=== PATIENT | female | born 1950 | race Caucasian/White ===

== ENCOUNTER → 2016-11-21 | Outpatient (CLI) | payer OTHER ==
[~2016-11-21] MED LIST: ASPI81TA28 PO; ATOR10TA88 PO; CALCTAB7 PO; MULTTAB58 PO; NTRGSL/4 SL; OMEG10007 PO
[2016-11-21 12:06] LABS: ALB/GLOB RATIO 1.1 (0.9-2); ALKALINE PHOSPHATASE 95 U/L (45-117); ALT/SGPT 32 U/L (12-78); AST/SGOT 17 U/L (15-37); BLOOD UREA NITROGEN 19 mg/dl (7-18); BUN/CREATININE RATIO 25.7 (10-20); CARBON DIOXIDE 27 mmol/L (21-32); CHLORIDE 106 mmol/L (98-107); CREATININE 0.75 mg/dl (0.60-1.20); GLUCOSE 95 mg/dl (70-99); POTASSIUM 3.8 mmol/L (3.5-5.1); SODIUM 142 mmol/L (136-145)
[2016-11-21 12:17] LABS: CHOLESTEROL 158 mg/dl (0-200); CHOLESTEROL/HDL RATIO 3.4; HDL CHOLESTEROL 46 mg/dl; LDL CHOLESTEROL CALCULATED 65 mg/dl; TRIGLYCERIDES 233 mg/dl (0-150); VERY LOW DENSITY LIPOPROT CALC 47 mg/dl
--- NOTE | 2016-12-18 12:45 | CODING QUERY MEDICAL NECESSITY ---
SUPPORTING DIAGNOSIS NEEDED A supporting diagnosis is required for the test/procedure performed on this patient in order for us to be reimbursed by the patient's insurance. Please provide a supporting diagnosis for the following test/procedure listed below next to the test name along with your signature. *If there is no additional diagnosis for this patient that would support the following test/procedure please document that below next to the test/procedure. Test(s)/Procedure(s) that require a supporting diagnosis: DOS 2/2 * Vitamin D DIAGNOSIS: * Lipids DIAGNOSIS: * TSH DIAGNOSIS: Provider Signature: Date: Thank you Estella Yancey Health Information Management Once completed, please kindly fax back to [phone] For questions please call [phone]
== END | disposition home or self-care (01) ==
LOC: C.LAB1850 10:33
PROVIDERS: ATTEND Internal Medicine
DX: Z00.00 Encounter for general adult medical examination without abnormal findings (principal); Z12.4 Encounter for screening for malignant neoplasm of cervix; Z78.0 Asymptomatic menopausal state; E78.5 Hyperlipidemia, unspecified

== ENCOUNTER → 2016-11-21 | Outpatient (CLI) | payer OTHER | END | disposition home or self-care (01) | LOC: C.PAPS 14:23 | PROVIDERS: ATTEND Obstetrics & Gynecology | DX: Z12.4 Encounter for screening for malignant neoplasm of cervix (principal) ==

== ENCOUNTER → 2016-12-03 | Outpatient (CLI) | payer OTHER | END | disposition home or self-care (01) | LOC: C.MAMM 10:30 | PROVIDERS: ATTEND Internal Medicine | DX: Z00.00 Encounter for general adult medical examination without abnormal findings (principal); M85.80 Other specified disorders of bone density and structure, unspecified site; Z78.0 Asymptomatic menopausal state; Z90.710 Acquired absence of both cervix and uterus ==

== ENCOUNTER → 2017-02-19 | Outpatient (CLI) | payer OTHER ==
[~2017-02-19] MED LIST changes: +ATOR10TA82 PO; -ATOR10TA88 PO
--- NOTE | 2017-02-19 15:49 | MAMMOGRAPHY REPORT ---
BILATERAL DIGITAL SCREENING MAMMOGRAM TOMOSYNTHESIS WITH CAD: 02/19/2017 CLINICAL HISTORY: Routine screening. Patient has no complaints. TECHNIQUE: Breast tomosynthesis in addition to standard 2D mammography was performed. Current study was also evaluated with a Computer Aided Detection (CAD) system. COMPARISON: Comparison is made to exams dated: 02/16/2016 mammogram, 01/02/2015 mammogram, 01/14/2013 mammogram, 08/29/2011 mammogram, 08/27/2010 mammogram, and 08/25/2009 mammogram - [facility]. BREAST COMPOSITION: There are scattered areas of fibroglandular density in both breasts. FINDINGS: The parenchymal pattern is unchanged. No developing mass, architectural distortion or clu ster of suspicious microcalcifications is seen in either breast. IMPRESSION: ACR BI-RADS CATEGORY 2: BENIGN There is no mammographic evidence of malignancy. A 1 year screening mammogram is recommended. The p atient will receive written notification of the results. Approximately 10% of breast cancers are not detected with mammography. A negative mammographic repor t should not delay biopsy if a clinically suggestive mass is present. Yael Mejia M.D. ay/:02/19/2017 13:38:19 Rn Advice: Kenna CHOWDHURY(Zeyad)([place]), [facility] letter sent: Normal 1/2 BI-RADS Code: ACR BI-RADS Category 2: Benign
== END | disposition home or self-care (01) ==
LOC: C.MAMM 10:03
PROVIDERS: ATTEND Obstetrics & Gynecology
DX: Z12.31 Encounter for screening mammogram for malignant neoplasm of breast (principal)

== ENCOUNTER → 2017-04-15 | Outpatient (CLI) | payer OTHER ==
[~2017-04-15] MED LIST changes: -ATOR10TA82 PO; +ATOR10TA88 PO
== END | disposition home or self-care (01) ==
LOC: C.PATHSPEC 17:24
PROVIDERS: ATTEND Dermatology
DX: B07.9 Viral wart, unspecified (principal); D23.61 Other benign neoplasm of skin of right upper limb, including shoulder

== ENCOUNTER → 2017-11-18 | Outpatient (CLI) | payer OTHER ==
[~2017-11-18] MED LIST changes: +ATOR10TA82 PO; -ATOR10TA88 PO
[2017-11-18 13:58] LABS: ALT/SGPT 31 U/L (12-78); AST/SGOT 21 U/L (15-37); BLOOD UREA NITROGEN 16 mg/dl (7-18); CALCIUM 9.2 mg/dl (8.5-10.1); CARBON DIOXIDE 29 mmol/L (21-32); CREATININE 0.79 mg/dl (0.60-1.20); GLUCOSE 105 mg/dl (70-99); POTASSIUM 3.9 mmol/L (3.5-5.1); SODIUM 139 mmol/L (136-145)
[2017-11-18 14:02] LABS: ALKALINE PHOSPHATASE 79 U/L (45-117); CHOLESTEROL 151 mg/dl (0-200); LDL CHOLESTEROL CALCULATED 66 mg/dl; TOTAL PROTEIN 7.7 gm/dl (6.4-8.2)
== END | disposition home or self-care (01) ==
LOC: C.LABBC 10:04
PROVIDERS: ATTEND Internal Medicine
DX: E78.5 Hyperlipidemia, unspecified (principal); M85.80 Other specified disorders of bone density and structure, unspecified site; E78.1 Pure hyperglyceridemia

== ENCOUNTER → 2018-01-21 | Day surgery (SDC) | payer OTHER ==
[2018-01-15 08:24] VITALS: Ht 165.1 cm; Wt 68.2 kg
[~2018-01-21] VITALS: Ht 165.1 cm; Wt 68.2 kg
[~2018-01-21] MED LIST changes: +LIDOCAINE HCL 2% 2 ML VIAL (20MG/ML) ONE; -NTRGSL/4 SL; +PROPOFOL IV EMULSION 10 MG/ML 20 ML VIAL IV ONE; +SODIUM CHLORIDE 0.9% 500ML 500 ML IV ONE
--- NOTE | 2018-01-21 08:12 | Endo History and Physical ---
History & Physical Date of Service: Jan 21, 2018. Chief Complaint: Referring Physician: History of Present Illness 67 yo presenting for colon cancer screening. Average risk,no gi complaints. Past Surgical History Hx Cardiac Surgery: No Hx Internal Defibrillator: No Hx Pacemaker: No Hx Abdominal Surgery: Yes (HYSTERECTOMY) Hx of Implantable Prosthesis: No Hx Post-Op Nausea and Vomiting: No Hx Cancer Surgery: No Hx Thoracic Surgery: No Hx Orthopedic: No Hx Urinary Tract Surgery: No Family History None Social History Smoking Status: Never Smoker Hx Substance Use: No Hx Alcohol Use: Yes (OCC) Allergies Coded Allergies: No Known Allergies (Verified , 01/21/18) Current Medications Reported Home Medications Medications Dose Route/Sig Max Daily Dose Days Date Category Lipitor (Atorvastatin Calcium) 10 Mg Tab 10 Mg PO QAM 02/04/13 Rx Caltrate 600 Plus (Calcium Carbonate-Vitamin D W/) 1 Tab Tab 1 Tablet PO BID 02/03/13 Reported Multivitamin (Multiple Vitamin) 1 Tab Tab 1 Tablet PO DAILY 02/03/13 Reported Aspirin Ec (Aspirin) 81 Mg Tab 81 Mg PO QPM 02/03/13 Reported [place]-3 (Fish Oil) 1 Ea Cap 1 Capsule PO BID 02/03/13 Reported Vital Signs Weight (Kilograms): 68.18 Height (Feet): 5 Height (Inches): 5 Physical Exam General Appearance: WD/WN, no apparent distress Respiratory/Chest: Respiratory effort: no dyspnea Auscultation: breath sounds normal, CTA except as noted Cardiovascular: Apical Impulse: not displaced Heart Auscultation: RRR, normal S1, normal S2 Abdomen: Bowel Sounds: normal Inspection & Palpation: soft, non-distended Assessment and Plan 67 yo presenting for colon cancer screening. Average risk,no gi complaints. -Proceed with colonoscopy
--- NOTE | 2018-01-21 08:52 | GI REPORT ---
Procedure Date: 01/21/2018 8:28 AM Procedure: Colonoscopy Indications: Screening for colorectal malignant neoplasm Medicines: Monitored Anesthesia Care Complications: No immediate complications. Estimated blood loss: None. Estimated Blood Loss: Estimated blood loss: none. Procedure: Pre-Anesthesia Assessment: - Pre-Anesthesia Assessment: - Prior to the procedure, a History and Physical was performed, and patient medications, allergies and sensitivities were reviewed. The patient's tolerance of previous anesthesia was reviewed. Please see [facility] for complete details. - The risks and benefits of the procedure and the sedation options and risks were discussed with the patient. All questions were answered and informed consent was obtained. - Patient identification and proposed procedure were verified prior to the procedure by the physician and the nurse. The procedure was verified in the pre-procedure area in the procedure room. After obtaining informed consent, the endoscope was passed carefully and meticuously under direct vision and only advanced when the lumen was clearly identified, C02 insuflation was utilized throughout the entirity of the procedure. Throughout the procedure, the patient's blood pressure, pulse, and oxygen saturations were monitored continuously. After I obtained informed consent, the scope was passed under direct vision. Throughout the procedure, the patient's blood pressure, pulse, and oxygen saturations were monitored continuously. The colonoscopy was performed without difficulty. The patient tolerated the procedure well. The quality of the bowel preparation was good. The scope was introduced through the anus and advanced to the terminal ileum, with identification of the appendiceal orifice and IC valve. Findings: A 5 mm polyp was found in the transverse colon. The polyp was sessile. The polyp was removed with a cold snare. Resection and retrieval were complete. Multiple small-mouthed diverticula were found in the sigmoid colon. Estimated blood loss was minimal. Estimated blood loss: none. The terminal ileum appeared normal. Internal hemorrhoids were found during retroflexion. The exam was otherwise without abnormality on direct and retroflexion views. Impression: - One 5 mm polyp in the transverse colon, removed with a cold snare. Resected and retrieved. - Diverticulosis in the sigmoid colon. - The examined portion of the ileum was normal. - Internal hemorrhoids. - The examination was otherwise normal on direct and retroflexion views. Recommendation: - Discharge patient to home (with escort). - Repeat colonoscopy in 5 years for surveillance based on pathology results. - Return to referring physician as previously scheduled. Arnold Baptiste MD 01/21/2018 8:52:36 AM This report has been signed electronically. Note Initiated On: 01/21/2018 8:28 AM I attest to the content of the Intraoperative Record and orders documented therein, exceptions below
--- NOTE | 2018-01-21 08:56 | Discharge Instructions ---
Endoscopy Patient Instructions Date / Procedure(s) Performed Jan 21, 2018. Colonoscopy Allergy Information Coded Allergies: No Known Allergies (Verified , 01/21/18) Discharge Date / Findings Jan 21, 2018. Findings: A 5 mm polyp was found in the transverse colon. The polyp was sessile. The polyp was removed with a cold snare. Resection and retrieval were complete. Multiple small-mouthed diverticula were found in the sigmoid colon. Estimated blood loss was minimal. Estimated blood loss: none. The terminal ileum appeared normal. Internal hemorrhoids were found during retroflexion. The exam was otherwise without abnormality on direct and retroflexion views. Impression: - One 5 mm polyp in the transverse colon, removed with a cold snare. Resected and retrieved. - Diverticulosis in the sigmoid colon. - The examined portion of the ileum was normal. - Internal hemorrhoids. - The examination was otherwise normal on direct and retroflexion views. Recommendation: - Discharge patient to home (with escort). - Repeat colonoscopy in 5 years for surveillance based on pathology results. - Return to referring physician as previously scheduled. Medication Instructions Stopped Medication(s): stopped all meds Friday including ASA Provider Instructions Activity Restrictions - No exercising or heavy lifting for 24 hours. - Do not drink alcohol the day of the procedure. - Do not drive a car or operate machinery until the day after the procedure. - Do not make any important decisions or sign important papers in 24 hours after the procedure. Following Day: - Return to full activity which may include returning to work/school. Diet Start your diet with liquids and light foods (jello, soup, juice, toast). Then eat your usual diet if not nauseated. Treatment For Common After Affects For mild abdominal pain, bloating, or excessive gas: - Rest - Eat lightly - Lie on right side Follow-Up Information Follow-up with Dr. Chun Sommer as scheduled Anesthesia Information What You Should Know You have had a procedure that required some medicine to reduce anxiety and discomfort. This treatment is called moderate sedation. After receiving the treatment, you may be sleepy, but you will be able to breathe on your own. The effects of the treatment may last for several hours. Follow these instructions along with Activity/Diet recommendations noted above: * Do NOT do anything where dizziness or clumsiness would be dangerous. * Rest quietly at home today, then you can be up and about tomorrow. * Have a responsible person stay with you the rest of today. * You may have had an I.V. today. If so, you may take the dressing off later today. Recommendations Call your doctor if: * Trouble breathing * Continuous vomiting for more than 24 hours * Temperature above 101 degrees * Severe abdominal pain or bloating * Pain not relieved by pain medicine ordered * There is increased drainage or redness from any incision * A large amount of rectal bleeding greater than 2-3 tablespoons. (If you had a polyp/s removed or have hemorrhoids, a small amount of blood - from the rectum is to be expected.) * You have any unanswered questions or concerns. IN THE EVENT OF A SERIOUS EMERGENCY, GO TO THE NEAREST EMERGENCY ROOM Your discharge instructions were prepared by provider Arnold Baptiste. Patient Instructions Signature Page Dorothea Rose Patient (or Guardian) Signature/Date: I have read and understand the instructions given to me by my caregivers. Caregiver/RN/Doctor Signature/Date: The above-named patient and/or guardian has received patient instructions on this date. + Original Patient Signature Page (only) stays with chart. Please make copy for patient.
--- NOTE | 2018-01-21 09:12 | Anesthesiology Progress Note ---
Anesthesia Post Op Note Date & Time Jan 21, 2018 at 09:12 Vital Signs Pain Intensity: 0 Vital Signs Past 12 Hours Date Time Temp Pulse Resp B/P (MAP) Pulse Ox O2 Delivery O2 Flow Rate FiO2 01/21/18 09:08 62 16 124/80 (95) 99 Room Air 01/21/18 08:53 65 16 114/74 (87) 99 Room Air 01/21/18 08:17 36.5 59 18 125/72 (89) 96 Room Air Notes Mental Status: alert / awake / arousable, participated in evaluation Pt Amnestic to Procedure: Yes Nausea / Vomiting: adequately controlled Pain: adequately controlled Airway Patency, RR, SpO2: stable & adequate BP & HR: stable & adequate Hydration State: stable & adequate Anesthetic Complications: no major complications apparent
[2018-01-21 09:23] VITALS: BP 136/85; PULSE 59; O2SAT 98
== END | disposition home or self-care (01) ==
LOC: C.GI 07:46
PROVIDERS: ATTEND Internal Medicine
DX: Z12.11 Encounter for screening for malignant neoplasm of colon (principal); D12.3 Benign neoplasm of transverse colon; K57.30 Diverticulosis of large intestine without perforation or abscess without bleeding; K64.8 Other hemorrhoids; Z90.710 Acquired absence of both cervix and uterus

== ENCOUNTER → 2018-03-11 | Outpatient (CLI) | payer OTHER ==
[~2018-03-11] MED LIST changes: -LIDOCAINE HCL 2% 2 ML VIAL (20MG/ML) ONE; -PROPOFOL IV EMULSION 10 MG/ML 20 ML VIAL IV ONE; -SODIUM CHLORIDE 0.9% 500ML 500 ML IV ONE
--- NOTE | 2018-03-12 14:14 | MAMMOGRAPHY REPORT ---
BILATERAL DIGITAL SCREENING MAMMOGRAM TOMOSYNTHESIS WITH CAD: 03/11/2018 CLINICAL HISTORY: Routine screening. Patient has no complaints. TECHNIQUE: Breast tomosynthesis in addition to standard 2D mammography was performed. Current study was also evaluated with a Computer Aided Detection (CAD) system. COMPARISON: Comparison is made to exams dated: 02/19/2017 mammogram, 02/16/2016 mammogram, 01/02/2015 ma mmogram, 01/14/2013 mammogram, 08/29/2011 mammogram, and 08/27/2010 mammogram - [facility]. BREAST COMPOSITION: There are scattered areas of fibroglandular density in both breasts. FINDINGS: The parenchymal pattern is unchanged. No developing mass, architectural distortion or clus ter of suspicious microcalcifications is seen in either breast. IMPRESSION: ACR BI-RADS CATEGORY 2: BENIGN There is no mammographic evidence of malignancy. A 1 year screening mammogram is recommended. The pa tient will receive written notification of the results. Approximately 10% of breast cancers are not detected with mammography. A negative mammographic report should not delay biopsy if a clinically suggestive mass is present. Yael Mejia M.D. ay/:03/11/2018 14:16:00 Tooling Mechanic: Whitley CHOWDHURY(Zeyad)(M), [facility] letter sent: Normal 1/2 BI-RADS Code: ACR BI-RADS Category 2: Benign
== END | disposition home or self-care (01) ==
LOC: C.MAMM 13:25
PROVIDERS: ATTEND Obstetrics & Gynecology
DX: Z12.31 Encounter for screening mammogram for malignant neoplasm of breast (principal)

== ENCOUNTER 2024-08-08 20:25 | Observation (INO) ==
[2024-08-08] MEDS: METOPROLOL TARTRATE 1 MG/ML VIAL IV STA ×3 (20:43→21:21)
[2024-08-08] MEDS: MAGNESIUM SULFATE / D5W 1 GM/100 ML BAG IV SCH (20:45)
--- NOTE | 2024-08-08 20:55 | Emergency Department Note ---
Impression & Plan Atrial fibrillation with rapid ventricular response, Elevated troponin ED Provider Note Provider: Chalino Mcmullen MD DATE OF SERVICE: 08/08/2024 CHIEF COMPLAINT: Elevated heart rate HISTORY OF PRESENT ILLNESS: Patient is a healthy 73-year-old female history of hyperlipidemia on Lipitor but no other medications or aspirin usage presents today onset within the past hour of elevated heart rate and palpitations. Little short of breath but no pain. No lightheadedness or syncope. No leg swelling. No recent illness reported or nausea or abdominal pain. Patient without a history of A-fib. does have a history of the noted heart rate significant elevated at home and came here for further evaluation. No reported significant family history of cardiac disease. PAST MEDICAL HISTORY: As noted above MEDICATIONS: Reviewed home medications just Lipitor at this time, no [id number] aspirin SOCIAL HISTORY: PHYSICAL EXAM: GENERAL: alert and oriented in no acute distress on stretcher Head: normocephalic and atraumatic EYES: No injection, discharge or icterus. EOMI. NECK: Trachea midline. ENT: Mucous membranes pink and moist. LUNGS: Airway patent. No retractions. Breath sounds clear with good air entry bilaterally. HEART: Irregular regular tachycardic rate and rhythm. No chest wall tenderness SKIN: Acyanotic, warm, dry, without rashes EXTREMITIES: Without swelling, tenderness or deformity NEUROLOGICAL: No focal deficits. No aphasia. No facial droop or slurred speech. Ambulatory. EK bpm atrial fibrillation at ventricular spots. No clear acute ST segment elevation or depression with a QTc of 451. CONTINUOUS CARDIAC MONITORING: was ordered and showed a heart rate of 70s-160s bpm in atrial fibrillation 1 view chest x-ray per my interpretation: No evidence of pneumothorax, pneumonia, free air, or or pulm edema/pleural effusion. No cardiomegaly. Patient's laboratory studies and imaging reviewed. Differential includes Premature contractions, electrolyte abnormality, cardiac dysrhythmia, thyroid dysfunction, pulmonary embolism, infection, gastrointestinal, as well as other pathologies. IMPRESSION/MEDICAL DECISION MAKING: Patient generally healthy. Sudden onset of palpitations and elevated heart rate this evening. Appears to be a new onset rapid atrial fibrillation. Does not seem unstable. No syncope. Denies chest pain. Little shortness of breath and palpitation sensation. Given 5 mg of IV metoprolol as well as some IV magnesium to see if this affects some rate control. [id number] 2 score episodes appear elevated at 2 and thus indication for anticoagulation. is of history of A-fib send patient with some familiarity. Discussed process with her. No active chest pain or evidence of STEMI and I doubt this is ischemic. Do not believe she has underlying PE. TSH and electrolytes sent to look for any obvious cause. Chest x-ray as above reassuring. No clinical evidence of heart failure at this time. Blood work here without significant anemia or leukocytosis. Normal platelet count. No significant lecture light abnormalities with normal renal function. Troponin mildly elevated 37. TSH normal. Magnesium 1.9. After 3 dose of IV metoprolol patient's heart rate does escalate into the 150s again. Given a 10 mg IV dose of diltiazem. Does have some effect of lowering the heart rate in the 70s to 100 but still fairly variable even resting in bed. Given that the patient required 2 different medications and has an elevated troponin did discuss with her staying overnight for further observation and care. Will start heparin drip for anticoagulation. Hospitalist team contacted. DIAGNOSIS: A-fib RVR, elevated troponin DISPOSITION: Hospitalist will evaluate Patient was agreeable with this plan. Critical Care I have personally spent 38 minutes of critical care time in the direct management of this patient. This includes bedside care, interpretation of diagnostic studies, and testing, discussion with consultants, patient, and family members, and other required patient management activities. These 38 minutes is in excess of all separately billable procedures. 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) Hyperlipidemia (Chronic) Asthma (Chronic) no meds Medical History (Updated 08/08/24 @ 22:14 by Chalino Mcmullen M.D.) Sneezing Cardiac murmur dx "a long time ago, nothing I am to be concerned about" Hip arthritis Pain of right hip Hypertriglyceridemia Hx of neoplasm of uncertain behavior Hx of uterine leiomyoma Hx of lentigo removed [place] angioma Surgical History H/O thumb surgery right S/P tonsillectomy History of hysterectomy, supracervical H/O oral surgery H/O laparoscopy S/P foot surgery S/P colonoscopy Family History Mother Heart disease Myocardial infarction Father Lymphoma Denies family history of Ovarian cancer Prostate cancer Breast cancer Colorectal cancer Social History Smoking Status: Never smoker Second Hand Exposure: Yes (as a child); Do You Dip or Chew Tobacco: No; Hx Alcohol Use: Yes Alcohol type: wine Alcohol Intake Frequency: 2-4 x/Month Hx Substance Use: No Preferred Language: [place] Communication Ability: Effective Visual Impairment: Limited Hearing Ability: Normal 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 Beliefs That Will Affect Care: None marital status: Current Living Situation: Spouse current occupational status: retired How many Children do You have: 2 Feels Safe at Home: Yes Childhood Exposure to Second-Hand Smoke: Yes Diet: regular caffeine: No Dental Care, Regularly: Yes Physical Activity Frequency: Daily Physical Activity Frequency Comment: walks Seatbelt Use: always Sunscreen Use: Yes Do you think of yourself as: straight/heterosexual Assistive Devices: Contacts and Glasses Allergies Allergies Allergy/AdvReac Type Severity Reaction Status Date / Time No Known Allergies Allergy Verified 08/08/24 22:33 Home Meds Home Medications Medication Instructions Recorded Confirmed cholecalciferol (vitamin D3) 50 2,000 units PO BID 11/25/19 08/08/24 mcg (2,000 unit) tablet magnesium 200 mg tablet 200 mg PO DAILY 04/14/24 08/08/24 omega 1-vph-ihq-fish oil 60 mg-90 1 cap PO QAM 04/14/24 08/08/24 mg-500 mg capsule (Fish Oil) zinc glycinate 20 mg capsule 20 mg PO QAM 04/14/24 08/08/24 vitamin B complex 1 tab PO QAM 08/08/24 08/08/24 Previous Rx's Medication Instructions Recorded atorvastatin 10 mg tablet 10 mg PO HS #90 tabs 09/22/24 Results & Data (ED) Vital Signs Vital Signs - 24 hr 08/08/24 20:28 08/08/24 20:43 08/08/24 20:50 Temperature 36.5 C Temperature Source Temporal Artery Scan Pulse Rate 163 H 147 H 146 H Pulse Rate [Apical] Respiratory Rate 18 Respiratory Effort / Characteristics Non-Labored Respiratory Depth Normal Respiratory Pattern Regular Blood Pressure 166/115 H 112/78 Blood Pressure [Left Arm] Blood Pressure Mean 132 Blood Pressure Mean [Left Arm] Pulse Oximetry 97 Oxygen Delivery Method Room Air Sepsis Recent Fever Within 48 Hours No Sepsis New/Unexplained Change in Mental Status N/A Sepsis Action Taken by Nursing No Action Required 08/08/24 21:00 08/08/24 21:01 08/08/24 21:02 Temperature Temperature Source Pulse Rate 122 H 122 H Pulse Rate [Apical] Respiratory Rate Respiratory Effort / Characteristics Respiratory Depth Respiratory Pattern Blood Pressure 120/84 112/79 Blood Pressure [Left Arm] Blood Pressure Mean Blood Pressure Mean [Left Arm] Pulse Oximetry 97 Oxygen Delivery Method Room Air Sepsis Recent Fever Within 48 Hours Sepsis New/Unexplained Change in Mental Status Sepsis Action Taken by Nursing 08/08/24 21:02 08/08/24 21:04 08/08/24 21:04 Temperature Temperature Source Pulse Rate Pulse Rate [Apical] 109 H Respiratory Rate 16 Respiratory Effort / Characteristics Respiratory Depth Respiratory Pattern Blood Pressure Blood Pressure [Left Arm] 112/79 Blood Pressure Mean Blood Pressure Mean [Left Arm] 90 Pulse Oximetry 97 97 Oxygen Delivery Method Room Air Room Air Room Air Sepsis Recent Fever Within 48 Hours Sepsis New/Unexplained Change in Mental Status Sepsis Action Taken by Nursing 08/08/24 21:22 08/08/24 21:23 08/08/24 21:44 Temperature Temperature Source Pulse Rate 108 H 111 H Pulse Rate [Apical] 103 H Respiratory Rate 16 Respiratory Effort / Characteristics Respiratory Depth Respiratory Pattern Blood Pressure 118/90 Blood Pressure [Left Arm] 97/60 L Blood Pressure Mean Blood Pressure Mean [Left Arm] 72 Pulse Oximetry 97 Oxygen Delivery Method Sepsis Recent Fever Within 48 Hours Sepsis New/Unexplained Change in Mental Status Sepsis Action Taken by Nursing 08/08/24 22:03 08/08/24 22:26 Temperature Temperature Source Pulse Rate Pulse Rate [Apical] 130 H 102 H Respiratory Rate 16 18 Respiratory Effort / Characteristics Respiratory Depth Respiratory Pattern Blood Pressure Blood Pressure [Left Arm] 121/75 104/69 Blood Pressure Mean Blood Pressure Mean [Left Arm] 90 80 Pulse Oximetry 90 98 Oxygen Delivery Method Sepsis Recent Fever Within 48 Hours Sepsis New/Unexplained Change in Mental Status Sepsis Action Taken by Nursing Laboratory Data 08/08/24 20:38 08/08/24 20:38 Lab Results 08/08/24 08/08/24 08/08/24 Range/Units 20:38 21:35 22:57 WBC 7.56 (4.8-10.8) K/ul RBC 5.46 H (4.20-5.40) M/uL Hgb 15.4 (12.0-16.0) g/dl Hct 45.8 (37.0-47.0) % MCV 83.9 (80.0-100.0) fL MCH 28.2 (25.0-34.0) pg MCHC 33.6 (32.0-36.0) g/dL RDW Std Deviation 44.3 (36.4-46.3) fL RDW Coeff of Preethi 14.6 H (11.5-14.5) % Plt Count 287 (130-400) K/uL MPV 10.1 (9.4-12.4) fL Immature Gran % (Auto) 0.1 % Neut % (Auto) 57.9 % Lymph % (Auto) 31.0 % [place] % (Auto) 7.5 % Eos % (Auto) 2.6 % Baso % (Auto) 0.9 % Neut # (Auto) 4.37 (1.40-6.50) K/uL Lymph # (Auto) 2.34 (1.20-3.40) K/uL [place] # (Auto) 0.57 (0.11-0.59) K/uL Eos # (Auto) 0.20 (0.00-0.50) K/uL Baso # (Auto) 0.07 (0.00-0.20) K/uL Immature Gran # (Auto) 0.01 (0.01-0.20) K/uL PT Cancelled 10.0 INR Cancelled 0.9 APTT Cancelled 23 PTT Ratio Cancelled 0.9 Sodium 140 (136-145) mmol/L Potassium 4.0 (3.5-5.1) mmol/L Chloride 105 (98-107) mmol/L Carbon Dioxide 25 (21-32) mmol/L Anion Gap 10 (3-11) BUN 20 (6-23) mg/dl Creatinine 0.79 (0.6-1.2) mg/dl Est Cr Clr Drug Dosing 63.8 ml/min eGFR 79.43 BUN/Creatinine Ratio 25.3 H (10-20) Glucose 204 H (70-99(Fasting)) mg/dl Calcium 10.2 (8.6-10.3) mg/dl Magnesium 1.9 (1.7-2.4) mg/dl Total Bilirubin 0.3 (0.2-1.0) mg/dl AST 25 (13-39) U/L ALT 27 (7-52) U/L Alkaline Phosphatase 105 H (34-104) U/L Troponin I High Sens 37.0 H 125.1 H* D (0-14) pg/ml Total Protein 8.2 (6.0-8.3) gm/dl Albumin 4.9 (3.4-5.0) gm/dl Globulin 3.3 (2.5-4.0) gm/dl Albumin/Globulin Ratio 1.5 (0.9-2) TSH 1.645 (0.300-4.500) uIu/ml Administered Medications Heparin Sodium/Dextrose (Heparin Sodium/Dextrose) 25,000 units in 500 mls @ 15 mls/hr IV .Q24H [facility]; Protocol Stop: 09/07/24 22:59 Last Admin: 08/08/24 23:28 Dose: 750 units/hr, 15 mls/hr Documented By: LUIS A Co-signed By: PAG Discontinued Medications Diltiazem HCl (Diltiazem Hcl 5 Mg/Ml 5 Ml Vial) 10 mg IV NOW STA Stop: 08/08/24 21:58 Last Admin: 08/08/24 21:59 Dose: 10 mg Documented By: DARYA Co-signed By: SONIA Heparin Sodium (Porcine) (Heparin Sod (Porcine) 1000 Unit/Ml) 1 units IV NOW ONE Stop: 08/08/24 22:48 Last Admin: 08/08/24 23:26 Dose: Not Given Documented By: LUIS A Heparin Sodium/Dextrose (Heparin Iv Adult Wt-Based Low-Dose W/ Initial Bolus Protocol) 1 each IV NOW STA; Protocol Stop: 08/08/24 22:33 Last Admin: 08/08/24 23:25 Dose: Not Given Documented By: LUIS A Magnesium Sulfate/Dextrose (Magnesium Sulfate / D5w) 1 gm in 100 mls @ 400 mls/hr IV Q15M [facility]IDHI Stop: 08/08/24 20:59 Last Infusion: 08/08/24 21:00 Dose: Infused Documented By: Admin: 08/08/24 20:45 Dose: 400 mls/hr Documented By: DARYA Metoprolol Tartrate (Metoprolol Tartrate 1 Mg/Ml Vial) 5 mg IV NOW STA Stop: 08/08/24 20:41 Last Admin: 08/08/24 20:43 Dose: 5 mg Documented By: DARYA Metoprolol Tartrate (Metoprolol Tartrate 1 Mg/Ml Vial) 5 mg IV NOW STA Stop: 08/08/24 20:54 Last Admin: 08/08/24 21:01 Dose: 5 mg Documented By: DARYA Metoprolol Tartrate (Metoprolol Tartrate 1 Mg/Ml Vial) 5 mg IV NOW STA Stop: 08/08/24 21:15 Last Admin: 08/08/24 21:21 Dose: 5 mg Documented By: DARYA Imaging Data Radiologist's Impression: Chest X-Ray 08/08/24 20:31 SINGLE VIEW CHEST CLINICAL HISTORY: Atypical chest pain. FINDINGS: An AP, portable, upright chest radiograph is compared to chest x-ray and chest CT dated 04/22/2021. The cardiomediastinal silhouette is top normal for projection. The lungs and pleural spaces are clear. No pneumothorax is seen. The skeletal structures are osteopenic. The bony thorax is grossly intact. IMPRESSION: No active disease in the chest. ACT 112: Negative or not required by law. Electronically signed by: Geoff Gonzalez M.D. 08/08/2024 9:44 PM Discharge Plan Visit Data Chief Complaint: Cardiac Assessment Stated Complaint: TACHYCARDIA ED Provider: Chalino Mcmullen Discharge Problem: Atrial fibrillation with rapid ventricular response, Elevated troponin Patient Disposition: Being Evaluated by Hospitalist Forms Stand Alone Forms: [facility] Prescriptions Prescriptions: No Action atorvastatin 10 mg tablet 10 mg PO HS Qty: 90 3RF cholecalciferol (vitamin D3) 2,000 unit tablet 2,000 units PO BID Hold Instructions: SURGERY omega 3-mys-pqn-fish oil [Fish Oil] 60-90-500 mg capsule 1 cap PO QAM magnesium 200 mg tablet 200 mg PO DAILY zinc glycinate 20 mg capsule 20 mg PO QAM vitamin B complex Tablet 1 tab PO QAM Referrals Referrals: Gilmar Hart MD [Primary Care Provider] -
[2024-08-08 21:11] LABS: Basophils # (auto) 0.07 K/uL (0.00-0.20); Basophils % (auto) 0.9 %; Eosinophils % (auto) 2.6 %; Hematocrit (blood only) 45.8 % (37.0-47.0); Hemoglobin 15.4 g/dl (12.0-16.0); Immature Granulocytes # (auto) 0.01 K/uL (0.01-0.20); Immature Granulocytes % (auto) 0.1 %; Lymphocytes # (auto) 2.34 K/uL (1.20-3.40); Mean Corpuscular Hemoglobin 28.2 pg (25.0-34.0); Mean Corpuscular Hgb Conc 33.6 g/dL (32.0-36.0); Mean Corpuscular Volume 83.9 fL (80.0-100.0); Mean Platelet Volume 10.1 fL (9.4-12.4); Monocytes # (auto) 0.57 K/uL (0.11-0.59); Monocytes % (auto) 7.5 %; Neutrophils # (auto) 4.37 K/uL (1.40-6.50); Neutrophils % (auto) 57.9 %; Platelet Count 287 K/uL (130-400); RDW Coefficient of Variation 14.6 % (11.5-14.5); RDW Standard Deviation 44.3 fL (36.4-46.3); Red Blood Count 5.46 M/uL (4.20-5.40); White Blood Count 7.56 K/ul (4.8-10.8)
[2024-08-08 21:25] LABS: Albumin Globulin Ratio 1.5 (0.9-2); Albumin Level 4.9 gm/dl (3.4-5.0); BUN Creatinine Ratio 25.3 (10-20); Bilirubin,Total 0.3 mg/dl (0.2-1.0); Calcium 10.2 mg/dl (8.6-10.3); Creatinine Clr Calc Pharmacy 63.8 ml/min; Globulin 3.3 gm/dl (2.5-4.0); Magnesium 1.9 mg/dl (1.7-2.4); Total Protein 8.2 gm/dl (6.0-8.3)
[2024-08-08 21:41] LABS: Thyroid Stimulating Hormone 1.645 uIu/ml (0.300-4.500)
--- NOTE | 2024-08-08 21:46 | XRay Report ---
SINGLE VIEW CHEST CLINICAL HISTORY: Atypical chest pain. FINDINGS: An AP, portable, upright chest radiograph is compared to chest x-ray and chest CT dated 04/22. The cardiomediastinal silhouette is top normal for projection. The lungs and pleural spaces ar e clear. No pneumothorax is seen. The skeletal structures are osteopenic. The bony thorax is grossly intact. IMPRESSION: No active disease in the chest. ACT 112: Negative or not required by law. Electronically signed by: Geoff Gonzalez M.D. 08/08/2024 9:44 PM
[2024-08-08] MEDS: dilTIAZem HCl 5 MG/ML 5 ML VIAL IV STA (21:59)
[2024-08-08 22:27] LABS: INR 0.9 (0.9-1.1); Partial Thromboplastin Ratio 0.9; Partial Thromboplastin Time 23 Seconds (21-31)
[2024-08-08] MEDS: Heparin IV Adult Wt-Based Low-Dose w/ INITIAL Bolus Protocol IV STA (23:25)
[2024-08-08] MEDS: HEPARIN SOD (PORCINE) 1000 UNIT/ML IV ONE (23:26)
[2024-08-08] MEDS: HEPARIN SODIUM/DEXTROSE 25,000 UNITS/500 ML BAG IV SCH (23:28)
[2024-08-08] MEDS ORDERED: dilTIAZem HCl 5 MG/ML 5 ML VIAL IV PRN (23:35)
--- NOTE | 2024-08-08 23:38 | History & Physical Report ---
Date of Service August 08, 2024 Assessment & Plan (1) Atrial fibrillation with rapid ventricular response: (2) Elevated troponin: (3) Dehydration, mild: (4) Pre-diabetes: (5) Hyperlipidemia: (6) Asthma: Plan Atrial fibrillation with RVR/elevated troponin- The patient will be admitted to telemetry for serial cardiac enzymes, serial EKG's, cardiac rhythm monitoring and a 2-D echocardiogram with Dopplers. EKG with heart rate at 161 Troponin 37.0, with follow-up 125.1 Patient is showing signs of dehydration, after [place] and her care for, and then had some wine later on in the day, with not very much fluid intake otherwise. Placed on NSS + KCl 20 mill equivalents at 100 mL/h x 1 L, and encourage oral intake of fluids Continue heparin drip low-dose without bolus per protocol begun in the ED Patient did receive Lopressor 5 mg IV x 3 without significant improvement from the ED, and then did have improvement in heart rate down to the 90s-low 100s after receiving Cardizem 10 mg IV She also did receive magnesium sulfate 1 g IV in the ED for magnesium of 1.9 Blood pressure has been relatively low after receiving the above medications, going as low as 91/72 Due to history of asthma on no medications, and ineffectiveness of the Lopressor IV in the ED, will place on Cardizem 10 mg IV every 4 hours as needed for heart rate greater than 120, and see how she responds to rehydration. If heart rate should increase and systolic blood pressure drops below 90 or MAP drops below 60, will give digoxin 250 mcg IV Consult cardiology Hyperlipidemia- Continue atorvastatin 10 mg at bedtime Check a fasting lipid panel Prediabetes- Glucose 204 on admission Check hemoglobin A1c Place on Accu-Cheks with NovoLog SSI History of Present Illness Chief Complaint: The patient reports that she was working out along the highway but she and her adopted for cleaning, then went to her daughters and had a steak and 1/2 glass of wine. Later on she was getting up, she noted palpitations in her chest, felt like her heart was racing, to the ED for assessment. Primary Care Provider: Gilmar Hart MD The patient is a 73-year-old female with a past medical history including bilateral carpal tunnel syndrome, hyperlipidemia, and asthma. She presents to the emergency department with palpitations as noted above. When she arrived to the emergency department, EKG was performed, and was noted that she was in atrial fibrillation with RVR with a rate of 161. She had no previous occurrence of palpitations, has never been in atrial fibrillation, and has no family history of atrial fibrillation that she is aware of. Allergies Allergy/AdvReac Type Severity Reaction Status Date / Time No Known Allergies Allergy Verified 08/08/24 22:33 Home Medications Medication Instructions Recorded Confirmed Type cholecalciferol (vitamin D3) 50 2,000 units PO BID 11/25/19 08/08/24 History mcg (2,000 unit) tablet magnesium 200 mg tablet 200 mg PO DAILY 04/14/24 08/08/24 History omega 7-ugu-fmk-fish oil 60 mg-90 1 cap PO QAM 04/14/24 08/08/24 History mg-500 mg capsule (Fish Oil) zinc glycinate 20 mg capsule 20 mg PO QAM 04/14/24 08/08/24 History atorvastatin 10 mg tablet 10 mg PO HS #90 tabs 07/11/24 08/08/24 Rx vitamin B complex 1 tab PO QAM 08/08/24 08/08/24 History Past Med/Surg History Problem List (Updated 08/09/24 @ 01:38 by Lazaro Hough MD) Dehydration, mild Elevated troponin (Acute) Atrial fibrillation with rapid ventricular response (Acute) Right ear impacted cerumen Carpal tunnel syndrome on both sides TMJ arthralgia Health care maintenance Pre-diabetes Ganglion of foot, left Ptosis, right eyelid Dermatochalasis of both upper eyelids Greater trochanteric bursitis of right hip 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) Hyperlipidemia (Chronic) Asthma (Chronic) no meds Medical History (Updated 08/09/24 @ 01:38 by Lazaro Hough MD) Sneezing Cardiac murmur dx "a long time ago, nothing I am to be concerned about" Hip arthritis Pain of right hip Hypertriglyceridemia Hx of neoplasm of uncertain behavior Hx of uterine leiomyoma Hx of lentigo removed [place] angioma Surgical History H/O thumb surgery right S/P tonsillectomy History of hysterectomy, supracervical H/O oral surgery H/O laparoscopy S/P foot surgery S/P colonoscopy Family History Mother Heart disease Myocardial infarction Father Lymphoma Denies family history of Ovarian cancer Prostate cancer Breast cancer Colorectal cancer Social History Smoking Status: Never smoker Second Hand Exposure: Yes (as a child); Do You Dip or Chew Tobacco: No; Hx Alcohol Use: Yes Alcohol type: wine Alcohol Intake Frequency: 2-4 x/Month Hx Substance Use: No Preferred Language: Syriac Communication Ability: Effective Visual Impairment: Limited Hearing Ability: Normal Rolled 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 Beliefs That Will Affect Care: None marital status: Current Living Situation: Spouse current occupational status: retired How many Children do You have: 2 Feels Safe at Home: Yes Childhood Exposure to Second-Hand Smoke: Yes Diet: regular caffeine: No Dental Care, Regularly: Yes Physical Activity Frequency: Daily Physical Activity Frequency Comment: walks Seatbelt Use: always Sunscreen Use: Yes Do you think of yourself as: straight/heterosexual Assistive Devices: Contacts and Glasses Review of Systems Review of Systems: The patient denies chest pain, cough, lower extremity swelling, sore throat, fevers, chills, sweats, nausea, vomiting, diarrhea , constipation, abdominal pain, pelvic pain, blood in urine or stool, dysuria, urinary frequency or urgency, lightheadedness, dizziness, headache, memory loss, loss of consciousness, rash, abnormal bruising or bleeding, imbalance, focal or generalized weakness, generalized arthralgias or myalgias, back or neck pain, or night sweats. The review of systems is otherwise negative other than for that already noted above, and at least 10 systems have been reviewed. Physical Exam Physical Exam: The patient is awake, alert and oriented 3, well developed and well nourished, normocephalic and atraumatic, lying in bed and in no acute distress. HEENT--PERRL, EOMI, mucous membranes and oropharynx mildly dry. Neck--supple. No JVD. No bruits. Thyroid normal, trachea midline, no adenopathy. Heart--tachycardic, irregularly irregular. No murmurs, rubs or gallops. Lungs--clear bilaterally, no respiratory distress, no accessory muscle use. Abdomen--normal bowel sounds and soft. Nontender. Nondistended, no hernias or masses, no organomegaly. Extremities--no cyanosis or clubbing. No edema. There are good distal pulses b/l. Dermatologic--normal skin turgor, normal color, no abnormal lymph nodes, no rash. Neurologic--cranial nerves II through XII grossly intact. Rheumatologic--normal range of motion. Psychiatric--normal affect. Results & Data Results & Data Vital Signs (Past 12 Hours) Vital Signs Temp Pulse Pulse Resp BP BP Pulse Ox 08/08/24 22:26 102 H 18 104/69 98 08/08/24 22:03 130 H 16 121/75 90 08/08/24 21:44 111 H 118/90 08/08/24 21:23 108 H 08/08/24 21:22 103 H 16 97/60 L 97 08/08/24 21:04 97 08/08/24 21:04 08/08/24 21:02 109 H 16 112/79 97 08/08/24 21:02 97 08/08/24 21:01 122 H 112/79 08/08/24 21:00 122 H 120/84 08/08/24 20:50 146 H 08/08/24 20:43 147 H 112/78 08/08/24 20:28 36.5 C 163 H 18 166/115 H 97 O2 Del Method 08/08/24 22:26 08/08/24 22:03 08/08/24 21:44 08/08/24 21:23 08/08/24 21:22 08/08/24 21:04 Room Air 08/08/24 21:04 Room Air 08/08/24 21:02 Room Air 08/08/24 21:02 Room Air 08/08/24 21:01 08/08/24 21:00 08/08/24 20:50 08/08/24 20:43 08/08/24 20:28 Room Air Laboratory Results Laboratory Results WBC 7.56 K/ul (4.8-10.8) 08/08/24 20:38 RBC 5.46 M/uL (4.20-5.40) H 08/08/24 20:38 Hgb 15.4 g/dl (12.0-16.0) 08/08/24 20:38 Hct 45.8 % (37.0-47.0) 08/08/24 20: MCV 83.9 fL (80.0-100.0) 08/08/24 20:38 MCH 28.2 pg (25.0-34.0) 08/08/24 20: MCHC 33.6 g/dL (32.0-36.0) 08/08/24 20:38 RDW Std Deviation 44.3 fL (36.4-46.3) 08/08/24 20: RDW Coeff of Preethi 14.6 % (11.5-14.5) H 08/08/24 20: Plt Count 287 K/uL (130-400) 08/08/24 20:38 MPV 10.1 fL (9.4-12.4) 08/08/24 20:38 Immature Gran % (Auto) 0.1 % 08/08/24 20:38 Neut % (Auto) 57.9 % 08/08/24 20:38 Lymph % (Auto) 31.0 % 08/08/24 20:38 [place] % (Auto) 7.5 % 08/08/24 20:38 Eos % (Auto) 2.6 % 08/08/24 20:38 Baso % (Auto) 0.9 % 08/08/24 20:38 Neut # (Auto) 4.37 K/uL (1.40-6.50) 08/08/24 20:38 Lymph # (Auto) 2.34 K/uL (1.20-3.40) 08/08/24 20:38 Liberty # (Auto) 0.57 K/uL (0.11-0.59) 08/08/24 20:38 Eos # (Auto) 0.20 K/uL (0.00-0.50) 08/08/24 20: Baso # (Auto) 0.07 K/uL (0.00-0.20) 08/08/24 20: Immature Gran # (Auto) 0.01 K/uL (0.01-0.20) 08/08/24 20: PT 10.0 Seconds (9.0-12.0) 08/08/24 21:35 INR 0.9 (0.9-1.1) 08/08/24 21:35 APTT 23 Seconds (21-31) 08/08/24 21:35 PTT Ratio 0.9 08/08/24 21:35 Sodium 140 mmol/L (136-145) 08/08/24 20:38 Potassium 4.0 mmol/L (3.5-5.1) 08/08/24 20:38 Chloride 105 mmol/L (98-107) 08/08/24 20:38 Carbon Dioxide 25 mmol/L (21-32) 08/08/24 20:38 Anion Gap 10 (3-11) 08/08/24 20:38 BUN 20 mg/dl (6-23) 08/08/24 20:38 Creatinine 0.79 mg/dl (0.6-1.2) 08/08/24 20:38 Est Cr Clr Drug Dosing 63.8 ml/min 08/08/24 20:38 eGFR 79.43 08/08/24 20:38 BUN/Creatinine Ratio 25.3 (10-20) H 08/08/24 20:38 Glucose 204 mg/dl (70-99(Fasting)) H 08/08/24 20:38 Calcium 10.2 mg/dl (8.6-10.3) 08/08/24 20:38 Magnesium 1.9 mg/dl (1.7-2.4) 08/08/24 20:38 Total Bilirubin 0.3 mg/dl (0.2-1.0) 08/08/24 20:38 AST 25 U/L (13-39) 08/08/24 20:38 ALT 27 U/L (7-52) 08/08/24 20:38 Alkaline Phosphatase 105 U/L (34-104) H 08/08/24 20:38 Troponin I High Sens 125.1 pg/ml (0-14) H* D 08/08/24 22:57 Total Protein 8.2 gm/dl (6.0-8.3) 08/08/24 20:38 Albumin 4.9 gm/dl (3.4-5.0) 08/08/24 20:38 Globulin 3.3 gm/dl (2.5-4.0) 08/08/24 20:38 Albumin/Globulin Ratio 1.5 (0.9-2) 08/08/24 20:38 TSH 1.645 uIu/ml (0.300-4.500) 08/08/24 20:38 Impressions Chest X-Ray 08/08/24 20:31 SINGLE VIEW CHEST CLINICAL HISTORY: Atypical chest pain. FINDINGS: An AP, portable, upright chest radiograph is compared to chest x-ray and chest CT dated 04/22/2021. The cardiomediastinal silhouette is top normal for projection. The lungs and pleural spaces are clear. No pneumothorax is seen. The skeletal structures are osteopenic. The bony thorax is grossly intact. IMPRESSION: No active disease in the chest. ACT 112: Negative or not required by law. Electronically signed by: Geoff Gonzalez M.D. 08/08/2024 9:44 PM Code Status & VTE Plan Code Status Full code VTE Prophylaxis Plan VTE Prophylaxis will be ordered: Yes PG Care Time/CCT Total # of Minutes Spent Total Time Spent with Patient: Total time spent is greater than 50% in coordination of care (as documented) at patient's floor/unit and/or counseling patient: Coding Level of Care Code 17807 INT INP/OBS CARE 3/75MIN Diagnoses Atrial fibrillation with rapid ventricular response I48.91 Elevated troponin R79.89 Dehydration, mild E86.0 Pre-diabetes R73.03 Mixed hyperlipidemia E78.2 Hyperlipidemia type: mixed hyperlipidemia Mild intermittent asthma without complication J45.20 Asthma severity: mild Asthma persistence: intermittent Asthma complication type: uncomplicated (5) Hyperlipidemia Hyperlipidemia type: mixed hyperlipidemia Qualified Code(s): E78.2 - Mixed hyperlipidemia (6) Asthma Asthma severity: mild Asthma persistence: intermittent Asthma complication type: uncomplicated Qualified Code(s): J45.20 - Mild intermittent asthma, uncomplicated
[2024-08-09] MEDS ORDERED: ACETAMINOPHEN 325 MG TAB PO PRN (00:42)
[2024-08-09] MEDS ORDERED: GLUCOSE 10 TAB/TUBE PO PRN (00:42)
[2024-08-09] MEDS ORDERED: DEXTROSE 50% 50 ML SYRINGE IV PRN (00:42)
[2024-08-09] MEDS ORDERED: GLUCOSE 40% GEL 15 GM TUBE PO PRN (00:42)
[2024-08-09] MEDS ORDERED: CARBOHYDRATES FOR HYPOGLYCEMIA PO PRN (00:42)
[2024-08-09] MEDS ORDERED: GLUCAGON FOR INJ 1 MG VIAL SQ PRN (00:42)
[2024-08-09] MEDS: NSS + 20MEQ KCL 20 MEQ/1,000 ML BAG IV STA (01:53)
[2024-08-09 02:57] VITALS: RESP 18; O2SAT 94
[2024-08-09 06:10] LABS: Basophils # (auto) 0.07 K/uL (0.00-0.20); Basophils % (auto) 0.9 %; Eosinophils # (auto) 0.26 K/uL (0.00-0.50); Eosinophils % (auto) 3.4 %; Hematocrit (blood only) 38.9 % (37.0-47.0); Hemoglobin 12.7 g/dl (12.0-16.0); Immature Granulocytes # (auto) 0.02 K/uL (0.01-0.20); Immature Granulocytes % (auto) 0.3 %; Lymphocytes # (auto) 3.06 K/uL (1.20-3.40); Lymphocytes % (auto) 40.5 %; Mean Corpuscular Hgb Conc 32.6 g/dL (32.0-36.0); Mean Corpuscular Volume 85.9 fL (80.0-100.0); Mean Platelet Volume 9.9 fL (9.4-12.4); Monocytes # (auto) 0.58 K/uL (0.11-0.59); Monocytes % (auto) 7.7 %; Neutrophils # (auto) 3.57 K/uL (1.40-6.50); Neutrophils % (auto) 47.2 %; Platelet Count 237 K/uL (130-400); RDW Coefficient of Variation 14.6 % (11.5-14.5); RDW Standard Deviation 45.7 fL (36.4-46.3); Red Blood Count 4.53 M/uL (4.20-5.40); White Blood Count 7.56 K/ul (4.8-10.8)
[2024-08-09 06:21] LABS: Albumin Level 3.9 gm/dl (3.4-5.0); BUN Creatinine Ratio 35.2 (10-20); Calcium 8.8 mg/dl (8.6-10.3); Creatinine Clr Calc Pharmacy 71.4 ml/min; Magnesium 1.9 mg/dl (1.7-2.4); Phosphorus 3.4 mg/dl (2.5-4.9); Potassium 4.1 mmol/L (3.5-5.1)
[2024-08-09 06:30] LABS: ANTI-Xa, UFH(UnfractionatedHep 0.18 IU/ml (0.3-0.7); Partial Thromboplastin Ratio 1.1; Partial Thromboplastin Time 29 Seconds (21-31); Prothrombin Time 10.5 Seconds (9.0-12.0)
[2024-08-09 07:58] LABS: Estimated Average Glucose 151 mg/dl; Hemoglobin A1C 6.9 % (4.5-5.6)
[2024-08-09] MEDS ORDERED: ZINC GLYCINATE PO SCH (09:00)
[2024-08-09] MEDS ORDERED: NON-FORMULARY MEDICATION (Magnesium 200 mg tablet) PO SCH (09:00)
[2024-08-09] MEDS: VITAMIN B COMPLEX TAB PO SCH (09:05)
[2024-08-09] MEDS: OMEGA-3 (PURIFIED FISH OIL) 1 GM CAP PO SCH (09:05)
[2024-08-09] MEDS: CHOLECALCIFEROL 25 MCG (1000 UNITS) TAB PO SCH (09:05)
[2024-08-09] MEDS: INSULIN ASPART PER UNIT CHARGE SC SCH (09:09)
--- NOTE | 2024-08-09 09:16 | Cardiology Consultation ---
Date of Consultation August 09, 2024 Assessment & Plan (1) Paroxysmal atrial fibrillation: (2) Elevated troponin: (3) Mitral regurgitation: Plan ASSESSMENT/PLAN: 1. Paroxysmal atrial fibrillation: Spontaneously converted to sinus rhythm earlier this morning. Diagnosis was discussed with her in detail. Treatment strategies discussed such as rate control, rhythm control, and ablation. Given that this is her first documented atrial fibrillation and that she was symptom atic, never before experiencing such symptoms, she does not wish to take any rate controlling or rhythm controlling medications at this time. She prefers to monitor for future events. Given elevated [id number] or, recommend anticoagulation therapy for stroke risk reduction. She is agreeable. Eliquis 5 mg twice daily. Monitor renal function and CBC. 2. Elevated troponin: High-sensitivity troponin peaked at 125. This was likely due to demand ischemia in the setting of A-fib with RVR. She did not present with acute coronary syndrome and denies angina with stable exercise tolerance and regular cardiovascular exercise. Ischemic evaluation not necessary at this time. 3. Mitral regurgitation: Echo findings discussed with her and her . She was reassured. Can repeat echo in 3 to 5 years for surveillance purposes. 4. Disposition: Follow-up in the outpatient cardiology office in the next couple of weeks. She can be discharged home from a cardiology perspective. Patient care communicated with Dr. Bautista of the primary hospitalist service. Thank you for allowing me to participate in the care of your patient. Please call for any other questions or concerns. Sincerely, Zaire Ho M.D. History of Present Illness Reason for Consultation: "New onset atrial fibs with RVR" Requesting Physician: Dr. Hough Attending Physician: Gabriela Bautista MD History of Present Illness Mrs. Rose is a very pleasant 73-year-old female with a history significant for paroxysmal atrial fibrillation, dyslipidemia, prediabetes, and asthma. She was admitted on 08/08/2024 with atrial fibrillation and rapid ventricular response. At approximately 6:45 PM, she was standing in the kitchen when palpitations started. Her smart watch indicated a heart rate into the 120s. 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 She wonders if she could have been dehydrated. With the palpitations, she also felt short of breath. She had never experienced these symptoms before. She denied chest pain. She denies syncope, near syncope, edema, or bleeding. In the ER, she was noted to have A-fib with RVR with heart rates in the 160s at times. She was given IV fluids and potassium. She was also administered metoprolol IV 5 mg x 3, followed by diltiazem 10 mg IV. She continued to have palpitations until she converted to sinus rhythm at approximately 3:49 AM on 08/09/2024. When she was seen earlier this afternoon, she was back to baseline. She reports that she walks approximately 2.5 miles daily and once a week, 5 miles and tolerates it well. She has chronic dyspnea on exertion on occasion when she climbs inclines but this is stable. She denies a history of stroke, TIA, vascular disease, heart failure, hypertension, or diabetes. Review of systems: As above. Family history: Mother had CAD and PCI in her mid 60s. Social history: She denies tobacco or drug abuse. Occasional wine. She lives at home with her , but. 2 daughters. Her was present at the bedside. Allergies Allergy/AdvReac Type Severity Reaction Status Date / Time No Known Allergies Allergy Verified 08/08/24 22:33 Home Medications Medication Instructions Recorded Confirmed Type cholecalciferol (vitamin D3) 50 2,000 units PO BID 11/25/19 08/08/24 History mcg (2,000 unit) tablet magnesium 200 mg tablet 200 mg PO DAILY 04/14/24 08/08/24 History omega 8-cau-ccp-fish oil 60 mg-90 1 cap PO QAM 04/14/24 08/08/24 History mg-500 mg capsule (Fish Oil) zinc glycinate 20 mg capsule 20 mg PO QAM 04/14/24 08/08/24 History atorvastatin 10 mg tablet 10 mg PO HS #90 tabs 07/11/24 08/08/24 Rx vitamin B complex 1 tab PO QAM 08/08/24 08/08/24 History apixaban 5 mg tablet (Eliquis) 5 mg PO BID 30 days #60 tabs 08/09/24 Rx Patient History Medical History (Updated 08/09/24 @ 18:04 by Hernan Ho MD) Sneezing Cardiac murmur dx "a long time ago, nothing I am to be concerned about" Hip arthritis Pain of right hip Hypertriglyceridemia Hx of neoplasm of uncertain behavior Hx of uterine leiomyoma Hx of lentigo removed [place] angioma Surgical History H/O thumb surgery right S/P tonsillectomy History of hysterectomy, supracervical H/O oral surgery H/O laparoscopy S/P foot surgery S/P colonoscopy Family History Mother Heart disease Myocardial infarction Father Lymphoma Denies family history of Ovarian cancer Prostate cancer Breast cancer Colorectal cancer Social History Smoking Status: Never smoker Second Hand Exposure: Yes (as a child); Do You Dip or Chew Tobacco: No; Hx Alcohol Use: Yes Alcohol type: wine Alcohol Intake Frequency: 2-4 x/Month Hx Substance Use: No Preferred Language: Estonian Communication Ability: Effective Visual Impairment: Limited Hearing Ability: Normal Salon Coordinator Required: No Beliefs That Will Affect Care: None marital status: Current Living Situation: Spouse current occupational status: retired How many Children do You have: 2 Feels Safe at Home: Yes Childhood Exposure to Second-Hand Smoke: Yes Diet: regular caffeine: No Dental Care, Regularly: Yes Physical Activity Frequency: Daily Physical Activity Frequency Comment: walks Seatbelt Use: always Sunscreen Use: Yes Do you think of yourself as: straight/heterosexual Assistive Devices: None Physical Exam Physical Exam: Gen.: No acute distress. Alert and oriented. HEENT: Anicteric sclera. Neck: No JVD. Normal carotid upstrokes bilaterally. Cardiac: Regular. Normal S1-S2. 1/6 systolic murmur. Pulmonary: Clear to auscultation bilaterally without wheezes, rales, or rhonchi. Abdomen: Soft, nontender, nondistended, with normoactive bowel sounds. No bruits noted. Extremities: 2+ radial pulses bilaterally. 2+ posterior tibialis pulses bilaterally. No edema or cyanosis. Psychiatric: Affect appears appropriate. Results & Data Vital Signs (Past 12 Hours) Vital Signs Temp Pulse Pulse Resp BP BP Pulse Ox 08/09/24 07:50 36.5 C 59 L 18 134/77 94 08/09/24 07:11 61 08/09/24 04:15 67 114/66 08/09/24 02:56 36.8 C 118 H 18 105/62 94 08/09/24 01:28 123 H 08/09/24 00:43 36.5 C 118 H 17 98/64 L 95 08/09/24 00:42 08/09/24 00:24 36.8 C 105 H 20 97/76 L 95 08/09/24 00:00 104 H 20 107/75 95 08/08/24 23:46 108/75 08/08/24 23:42 108 H 20 108/75 95 08/08/24 23:31 118/80 08/08/24 23:15 105 H 25 H 135/65 94 08/08/24 23:00 86 25 H 115/78 95 08/08/24 22:51 102 H 18 95 08/08/24 22:46 113/70 08/08/24 22:46 113/70 08/08/24 22:46 113/70 08/08/24 22:39 99 H 16 94 08/08/24 22:30 110/81 08/08/24 22:30 110/81 08/08/24 22:30 93 H 25 H 95 08/08/24 22:27 104/69 08/08/24 22:27 104/69 08/08/24 22:27 88 23 08/08/24 22:26 102 H 18 104/69 98 08/08/24 22:21 75 22 08/08/24 22:15 91 H 23 08/08/24 22:10 94/79 L 08/08/24 22:10 94/79 L 08/08/24 22:10 94/79 L 08/08/24 22:04 121/75 08/08/24 22:03 124 H 28 H 90 08/08/24 22:03 130 H 16 121/75 90 08/08/24 22:00 91/72 L 08/08/24 21:48 131 H 19 95 08/08/24 21:44 111 H 118/90 08/08/24 21:42 113 H 23 95 08/08/24 21:41 118/90 08/08/24 21:41 118/90 08/08/24 21:39 111 H 22 94 08/08/24 21:30 111/68 08/08/24 21:27 94 H 20 96 08/08/24 21:24 99 H 21 95 08/08/24 21:23 108 H 08/08/24 21:22 103 H 16 97/60 L 97 08/08/24 21:20 97/60 L 08/08/24 21:20 97/60 L O2 Del Method 08/09/24 07:50 Room Air 08/09/24 07:11 08/09/24 04:15 08/09/24 02:56 Room Air 08/09/24 01:28 08/09/24 00:43 Room Air 08/09/24 00:42 Room Air 08/09/24 00:24 Room Air 08/09/24 00:00 08/08/24 23:46 08/08/24 23:42 08/08/24 23:31 08/08/24 23:15 08/08/24 23:00 08/08/24 22:51 08/08/24 22:46 08/08/24 22:46 08/08/24 22:46 08/08/24 22:39 08/08/24 22:30 08/08/24 22:30 08/08/24 22:30 08/08/24 22:27 08/08/24 22:27 08/08/24 22:27 08/08/24 22:26 08/08/24 22:21 08/08/24 22:15 08/08/24 22:10 08/08/24 22:10 08/08/24 22:10 08/08/24 22:04 08/08/24 22:03 08/08/24 22:03 08/08/24 22:00 08/08/24 21:48 08/08/24 21:44 08/08/24 21:42 08/08/24 21:41 08/08/24 21:41 08/08/24 21:39 08/08/24 21:30 08/08/24 21:27 08/08/24 21:24 08/08/24 21:23 08/08/24 21:22 08/08/24 21:20 08/08/24 21:20 Laboratory Results Laboratory Results - last 24 hr 08/08/24 08/08/24 08/08/24 20:38 21:35 22:57 WBC 7.56 RBC 5.46 H Hgb 15.4 Hct 45.8 MCV 83.9 MCH 28.2 MCHC 33.6 RDW Std Deviation 44.3 RDW Coeff of Preethi 14.6 H Plt Count 287 MPV 10.1 Immature Gran % (Auto) 0.1 Neut % (Auto) 57.9 Lymph % (Auto) 31.0 [place] % (Auto) 7.5 Eos % (Auto) 2.6 Baso % (Auto) 0.9 Neut # (Auto) 4.37 Lymph # (Auto) 2.34 [place] # (Auto) 0.57 Eos # (Auto) 0.20 Baso # (Auto) 0.07 Immature Gran # (Auto) 0.01 PT Cancelled 10.0 INR Cancelled 0.9 APTT Cancelled 23 PTT Ratio Cancelled 0.9 Heparin Anti-Xa, Unfract Sodium 140 Potassium 4.0 Chloride 105 Carbon Dioxide 25 Anion Gap 10 BUN 20 Creatinine 0.79 Est Cr Clr Drug Dosing 63.8 eGFR 79.43 BUN/Creatinine Ratio 25.3 H Glucose 204 H POC Glucose Estimat Average Glucose Hemoglobin A1c Calcium 10.2 Phosphorus Magnesium 1.9 Total Bilirubin 0.3 AST 25 ALT 27 Alkaline Phosphatase 105 H Troponin I High Sens 37.0 H 125.1 H* D Total Protein 8.2 Albumin 4.9 Globulin 3.3 Albumin/Globulin Ratio 1.5 Triglycerides Cholesterol LDL Cholesterol, Calc VLDL Cholesterol, Calc HDL Cholesterol Cholesterol/HDL Ratio TSH 1.645 08/09/24 08/09/24 05:34 07:52 WBC 7.56 RBC 4.53 Hgb 12.7 Hct 38.9 MCV 85.9 MCH 28.0 MCHC 32.6 RDW Std Deviation 45.7 RDW Coeff of [place] 14.6 H Plt Count 237 MPV 9.9 Immature Gran % (Auto) 0.3 Neut % (Auto) 47.2 Lymph % (Auto) 40.5 [place] % (Auto) 7.7 Eos % (Auto) 3.4 Baso % (Auto) 0.9 Neut # (Auto) 3.57 Lymph # (Auto) 3.06 [place] # (Auto) 0.58 Eos # (Auto) 0.26 Baso # (Auto) 0.07 Immature Gran # (Auto) 0.02 PT 10.5 INR 1.0 APTT 29 PTT Ratio 1.1 Heparin Anti-Xa, Unfract 0.18 L Sodium 139 Potassium 4.1 Chloride 109 H Carbon Dioxide 24 Anion Gap 6 BUN 25 H Creatinine 0.71 Est Cr Clr Drug Dosing 71.4 eGFR 90.28 BUN/Creatinine Ratio 35.2 H Glucose 152 H POC Glucose 140 H Estimat Average Glucose 151 Hemoglobin A1c 6.9 H Calcium 8.8 Phosphorus 3.4 Magnesium 1.9 Total Bilirubin AST ALT Alkaline Phosphatase Troponin I High Sens Total Protein Albumin 3.9 Globulin Albumin/Globulin Ratio Triglycerides 204 H Cholesterol 139 LDL Cholesterol, Calc 52 VLDL Cholesterol, Calc 41 H HDL Cholesterol 46 Cholesterol/HDL Ratio 3.0 TSH Diagnostic Findings Labs reviewed and notable for normal blood counts, excellent LDL, normal tr ansaminase levels, normal TSH, normal magnesium, normal renal function, normal potassium, and mildly elevated high-sensitivity troponin. ECG personally reviewed: ECG 08/08/20242033: A-fib with RVR [address] abnormality. ECG 08/09/2024 at 6:34 AM: Sinus bradycardia 57 bpm. History and physical report reviewed. Chest x-ray 08/08/2024: No active disease in the chest per radiology. Chest x- ray personally reviewed: No infiltrate. No pleural effusion. Telemetry personally reviewed: A-fib with RVR converting to sinus rhythm on 08/09/2024 at 3:49 AM. ECHP 08/09/2024: 1. Normal left ventricular size and systolic function. EF 60-65%. No regional wall motion abnormalities. Mild concentric left ventricular hypertrophy. 2. Mild left atrial dilation. 3. Mild mitral regurgitation. 4. Mildly sclerotic aortic valve without significant stenosis. 5. Normal estimated right ventricular systolic pressure. Medications Administered Current Inpatient Medications Acetaminophen (Acetaminophen 325 Mg Tab) 650 mg PO Q4H PRN PRN Reason: Pain or Fever Stop: 09/08/24 00:41 Atorvastatin Calcium (Atorvastatin 10 Mg Tab) 10 mg PO HS VIDHI Stop: 09/08/24 20:59 Dextrose (Dextrose 50% 50 Ml Syringe) 25 - 50 ml IV UD PRN; Protocol PRN Reason: Hypoglycemia Protocol Stop: 09/08/24 00:41 Diltiazem HCl (Diltiazem Hcl 5 Mg/Ml 5 Ml Vial) 10 mg IV Q4H PRN PRN Reason: HR >120 Stop: 09/07/24 23:34 Fish Oil ([place]-3 (Purified Fish Oil) 1 Gm Cap) 1 cap PO QAM VIDHI Stop: 09/08/24 08:59 Last Admin: 08/09/24 09:05 Dose: 1 cap Glucagon (Glucagon For Inj 1 Mg Vial) 1 mg SQ UD PRN; Protocol PRN Reason: Hypoglycemia Protocol Stop: 09/08/24 00:41 Glucose (Glucose 40% Gel 15 Gm Tube) 15 - 30 gm PO UD PRN; Protocol PRN Reason: Hypoglycemia Protocol Stop: 09/08/24 00:41 Glucose (Glucose 10 Tab/Tube) 4 - 8 tab PO UD PRN; Protocol PRN Reason: Hypoglycemia Protocol Stop: 09/08/24 00:41 Heparin Sodium/Dextrose (Heparin Sodium/Dextrose) 25,000 units in 500 mls @ 15 mls/hr IV .Q24H VIDHI; Protocol Stop: 09/07/24 22:59 Last Titration: 08/09/24 07:06 Dose: 900 units/hr, 18 mls/hr Potassium Chloride/Sodium Chloride (Normal Saline W/20 Meq Kcl) 20 meq in 1,000 mls @ 100 mls/hr IV .Q10H STA Stop: 08/09/24 10:22 Last Admin: 08/09/24 01:53 Dose: 100 mls/hr Insulin Aspart (Insulin Aspart Per Unit Charge) 0 units SC ACHS VIDHI Stop: 09/08/24 07:29 Last Admin: 08/09/24 09:09 Dose: Not Given Miscellaneous (Carbohydrates For Hypoglycemia ) 15 - 30 gm PO UD PRN PRN Reason: Hypoglycemia Protocol Stop: 09/08/24 00:41 Vitamin B Complex (Vitamin B Complex Tab) 1 tab PO QAM VIDHI Stop: 09/08/24 08:59 Last Admin: 08/09/24 09:05 Dose: 1 tab Vitamin D (Cholecalciferol 25 Mcg (1000 Units) Tab) 50 mcg PO BID VIDHI Stop: 09/08/24 08:59 Last Admin: 08/09/24 09:05 Dose: 50 mcg PG Care Time/CCT Total # of Minutes Spent Total Time Spent with Patient: Total time spent is greater than 50% in coordination of care (as documented) at patient's floor/unit and/or counseling patient: Coding Level of Care Code 65746 INT INP/OBS CARE MIN Diagnoses Paroxysmal atrial fibrillation I48.0 Elevated troponin R79.89 Mitral regurgitation I34.0
--- NOTE | 2024-08-09 10:16 | XCELERA ---
[id number]
[2024-08-09 13:11] LABS: ANTI-Xa, UFH(UnfractionatedHep 0.33 IU/ml (0.3-0.7)
--- NOTE | 2024-08-09 14:38 | Discharge Summary ---
<Statement entered by Gabriela Bautista MD - 08/09/24 17:39> I have reviewed vital signs, chart notes, labs and imaging. I have also discussed the management of the patient with the KARLA and I agree with the exam findings documented in the history and physical examination and the documented assessment and plan unless otherwise stated below. mildly elevated high-sensitivity troponin related to myocardial demand ischemia caused by tachyarrhythmia, no evidence of acute coronary syndrome Discharge Summary Date of Service August 09, 2024 Principal Dx & Hospital Course #1 = Principal Diagnosis (1) Atrial fibrillation with rapid ventricular response: (2) Elevated troponin: (3) Dehydration, mild: (4) Pre-diabetes: (5) Hyperlipidemia: (6) Asthma: Plan Atrial fibrillation with RVR/elevated troponin- Converted to NSR after IV Lopressor x3, IV Cardizem and IV fluids Troponin peaked at 125, suspect due to demand, not concerned for ACS Echo: EF60-65%, no regional wall motion abnormalities, mild LVH anticoagulation: heparin drip, transition to PO eliquis Consult cardiology - outpatient follow uo - deepa Hernandez, - pt declined rate or rhythm control Hyperlipidemia- Continue atorvastatin 10 mg at bedtime Fasting lipid panel with elevated triglycerides (204) - defer further management to PCP (increase statin vs diet control vs another medication) Prediabetes- A1c: 6.9 Pt met with informatics educator while inpatient, does not want to start medication but discussed some dietary changes to make Notes For Next Care Provider pt declined rhythm or rate control for afib. did prescribe eliquis, coupon provided A1c increased 6.4--> 6.9 Medication Changes From Visit added eliquis Admission HPI Per Admitting Provider The patient is a 73-year-old female with a past medical history including bilateral carpal tunnel syndrome, hyperlipidemia, and asthma. She presents to the emergency department with palpitations as noted above. When she arrived to the emergency department, EKG was performed, and was noted that she was in atrial fibrillation with RVR with a rate of 161. She had no previous occurrence of palpitations, has never been in atrial fibrillation, and has no family history of atrial fibrillation that she is aware of. Discharge Exam General: NAD, VS as above, sitting up in bed, plesant Resp: normal respiratory effort, lungs clear to auscultation CV: RRR, no murmur, Abd: normal bowel sounds, non tender, no hepatosplenomegaly Extremities: Moves all extremities, no LE edema Neuro: A&O x3, Skin: intact, no lesions noted Discharge Plan Discharge Items Patient Disposition: Home - Self-Care Reason For Visit: A-FIB WITH RVR Discharge Diagnosis: Afib with RVR Activity: Resume your previous activity Non-emergency contact: Primary Care Provider and Grease Packer Call non-emergency contact if: you have any medication questions and your symptoms worsen Follow-up/Referrals: Gilmar Hart MD [Primary Care Provider] - (follow up within 7 days, discuss A1c ) Hernan Ho MD [Physician] - (Follow up as directed - afib ) Diet: Carb Consistent or DM2 Addtl Attending Provider Instructions: Ms. Rose, You were hospitalized after and episode of atrial fibrillation with rapid ventricular response. Thankfully, you heart rate and rhythm responded well to IV medications and you have returned to normal sinus rhythm. There is a chance that you will return to a-fib, you have declined any medication to control the heart rate or rhythm. If you change your mind on this, recommend discussing with your classifier or PCP. Having afib, does increase your risk for blood clot and stroke. Because of this, you were started on Eliquis. Take one tablet twice a day. Your classifier will help you determine how long you need to be on this, but often times it is life long. I have attached information regarding taking Eliquis below. Your hgbA1c which is the average of all your blood sugars over 90 days came back elevated at 6.9, which is higher than your previous and approaching diabetes. You met with the informatics educator and discussed some different strategies to help lower your blood sugar. Recommend continued follow up with your PCP regarding this as you may need to be started on medication for diabetes if this does not improve. Your triglycerides are also quite elevated. Your PCP may want to add additional medication for this vs diet changes. Activity: You can do normal everyday activities as your body allows. Take rest breaks if you feel tired. Do not overexert. Stop activity if you have pain, shortness of breath or feel dizzy. Follow-up appointments: Make an appointment with your primary care physician within one week of discharge. A copy of this summary will be sent to them. Every time you see your primary care physician, or any other doctor, bring your medication list, and a list of questions. CONTACT YOUR PRIMARY CARE PROVIDER if you experience any of the following: Shortness of breath or difficulty breathing Fevers or chills Feeling tired with normal activity or experiencing dizziness or fainting Difficulty following your treatment plan, or difficulty taking medications CALL 911 OR GO TO THE EMERGENCY DEPARTMENT if you experience any of the following: Severe abdominal pain or nausea/vomiting Severe chest pain, or chest pain that radiates (moves) to your jaw or arm Sudden, severe shortness of breath or difficulty breathing Thank you for allowing us to participate in your care. Here are some guidelines about taking Eliquis: Increased risk of blood clots if you stop taking Eliquis. Do not stop taking Eliquis without talking to your doctor.. Stopping Eliquis increases your risk of having a stroke. Increased risk of bleeding. Eliquis can cause bleeding which can be serious and may lead to . This is because Eliquis is a blood thinner medicine (a nticoagulant) that lowers blood clotting. During treatment with Eliquis you are likely to bruise more easily, and it may take longer for bleeding to stop. * If you ever cannot get bleeding to stop please report to the ER * If you have a bruise that is large/painful or swollen you should also be seen by a medical provider Call your doctor or get medical help right away if you or your child develop any of these signs or symptoms of bleeding: unexpected bleeding or bleeding that lasts a long time, such as: * nose bleeds that happen often * unusual bleeding from the gums * bleeding that is severe or you cannot control * red, pink or brown urine * bright red or black stools (looks like tar) * cough up blood or blood clots * vomit blood or your vomit looks like coffee grounds If you have a fall and hit your head, please come to the ER and get checked out. Being on a blood thinner increases your risk of brain bleeding with falls. Avoid high risk activities, such as: * standing on tall ladders * riding motorcycles * anything where you are high risk for falls or trauma Avoid taking NSAIDs (pain medication) while you are taking a blood thinner. This includes: * Ibuprofen, Aleve Advil, Naproxen. * If you are ever unsure you can ask your doctor or pharmacist. * Tylenol is SAFE to take. If you have any new or worsening chest pain or shortness of breath please return to the ER. Pending Studies at Discharge: No Stand-Alone Forms: [facility], Smoking Cessation Medications and DC Order Prescriptions: New Eliquis 5 mg tablet 5 mg PO BID 30 Days Qty: 60 1RF Continued atorvastatin 10 mg tablet 10 mg PO HS Qty: 90 3RF cholecalciferol (vitamin D3) 2,000 unit tablet 2,000 units PO BID Hold Instructions: SURGERY omega 0-pxo-ihz-fish oil [Fish Oil] 60-90-500 mg capsule 1 cap PO QAM magnesium 200 mg tablet 200 mg PO DAILY zinc glycinate 20 mg capsule 20 mg PO QAM vitamin B complex Tablet 1 tab PO QAM Discharge Orders: Discharge Order (Routine); Ordered 08/09/24 Ordered By: Keisha Medina/Other Patient Handouts: Apixaban Oral Tablet, AFib Dc Admission Data Admit Date/Time: 08/08/24 23:37 Attending Provider: Gabriela Bautista Admit Provider: Lazaro Hough Primary Care Provider: Gilmar Hart V. Other Providers: Lazaro Hough; Hernan Ho Other Interventions: Discharge Summary Assessment (RN) Last Done: 08/09/24 15:09 Hospital Stay Data Consultations 08/08/24 22:20 ED Decision to Admit Stat 08/09/24 00:42 Consult Cardiology Routine Diagnostic Imagining Performed Chest X-Ray 08/08/24 20:31 SINGLE VIEW CHEST CLINICAL HISTORY: Atypical chest pain. FINDINGS: An AP, portable, upright chest radiograph is compared to chest x-ray and chest CT dated 04/22/2021. The cardiomediastinal silhouette is top normal for projection. The lungs and pleural spaces are clear. No pneumothorax is seen. The skeletal structures are osteopenic. The bony thorax is grossly intact. IMPRESSION: No active disease in the chest. ACT 112: Negative or not required by law. Electronically signed by: Geoff Gonzalez M.D. 08/08/2024 9:44 PM Pending Results Patient Have Any Pending Studies at Discharge: No Discharge Instructions Given to Patient (Per Discharging Provider) Ms. Rose, You were hospitalized after and episode of atrial fibrillation with rapid ventricular response. Thankfully, you heart rate and rhythm responded well to IV medications and you have returned to normal sinus rhythm. There is a chance that you will return to a-fib, you have declined any medication to control the heart rate or rhythm. If you change your mind on this, recommend discussing with your classifier or PCP. Having afib, does increase your risk for blood clot and stroke. Because of this, you were started on Eliquis. Take one tablet twice a day. Your classifier will help you determine how long you need to be on this, but often times it is life long. I have attached information regarding taking Eliquis below. Your hgbA1c which is the average of all your blood sugars over 90 days came back elevated at 6.9, which is higher than your previous and approaching diabetes. You met with the informatics educator and discussed some different strategies to help lower your blood sugar. Recommend continued follow up with your PCP regarding this as you may need to be started on medication for diabetes if this does not improve. Your triglycerides are also quite elevated. Your PCP may want to add additional medication for this vs diet changes. Activity: You can do normal everyday activities as your body allows. Take rest breaks if you feel tired. Do not overexert. Stop activity if you have pain, shortness of breath or feel dizzy. Follow-up appointments: Make an appointment with your primary care physician within one week of discharge. A copy of this summary will be sent to them. Every time you see your primary care physician, or any other doctor, bring your medication list, and a list of questions. CONTACT YOUR PRIMARY CARE PROVIDER if you experience any of the following: Shortness of breath or difficulty breathing Fevers or chills Feeling tired with normal activity or experiencing dizziness or fainting Difficulty following your treatment plan, or difficulty taking medications CALL 911 OR GO TO THE EMERGENCY DEPARTMENT if you experience any of the following: Severe abdominal pain or nausea/vomiting Severe chest pain, or chest pain that radiates (moves) to your jaw or arm Sudden, severe shortness of breath or difficulty breathing Thank you for allowing us to participate in your care. Here are some guidelines about taking Eliquis: Increased risk of blood clots if you stop taking Eliquis. Do not stop taking Eliquis without talking to your doctor.. Stopping Eliquis increases your risk of having a stroke. Increased risk of bleeding. Eliquis can cause bleeding which can be serious and may lead to . This is because Eliquis is a blood thinner medicine (anticoagulant) that lowers blood clotting. During treatment with Eliquis you are likely to bruise more easily, and it may take longer for bleeding to stop. * If you ever cannot get bleeding to stop please report to the ER * If you have a bruise that is large/painful or swollen you should also be seen by a medical provider Call your doctor or get medical help right away if you or your child develop any of these signs or symptoms of bleeding: unexpected bleeding or bleeding that lasts a long time, such as: * nose bleeds that happen often * unusual bleeding from the gums * bleeding that is severe or you cannot control * red, pink or brown urine * bright red or black stools (looks like tar) * cough up blood or blood clots * vomit blood or your vomit looks like coffee grounds If you have a fall and hit your head, please come to the ER and get checked out. Being on a blood thinner increases your risk of brain bleeding with falls. Avoid high risk activities, such as: * standing on tall ladders * riding motorcycles * anything where you are high risk for falls or trauma Avoid taking NSAIDs (pain medication) while you are taking a blood thinner. This includes: * Ibuprofen, Aleve Advil, Naproxen. * If you are ever unsure you can ask your doctor or pharmacist. * Tylenol is SAFE to take. If you have any new or worsening chest pain or shortness of breath please return to the ER. Total Time Total Time Spent Total Time Spent (In Minutes): Time spent day of discharge 40 minutes including direct patient care, medication reconciliation, documentation, review of labs and images, and coordination of care. Coding Level of Care Code 33684 INP/OBS DISCH >30 MIN Diagnoses Atrial fibrillation with rapid ventricular response I48.91 Elevated troponin R79.89 Dehydration, mild E86.0 Pre-diabetes R73.03 Mixed hyperlipidemia E78.2 Hyperlipidemia type: mixed hyperlipidemia Mild intermittent asthma without complication J45.20 Asthma complication type: uncomplicated Asthma persistence: intermittent Asthma severity: mild
[2024-08-09 15:10] VITALS: BP 137/70; PULSE 57; TEMP 98.2
[2024-08-09] MEDS ORDERED: ATORVASTATIN 10 MG TAB PO SCH (21:00)
--- NOTE | 2024-08-10 23:10 | Electrocardiogram Report ---
Test Reason : Blood Pressure : */* mmHG Vent. Rate : 161 BPM Atrial Rate : * BPM P-R Int : * ms QRS Dur : 80 ms QT Int : 276 ms P-R-T Axes : * 31 16 degrees QTcB Int : 451 ms Atrial fibrillation with rapid ventricular response Low voltage QRS Possible Septal infarct , age undetermined Nonspecific ST abnormality Abnormal ECG When compared with ECG of 25-Jul-2022 10:39, Atrial fibrillation has replaced Sinus rhythm Vent. rate has increased by [address] now depressed in Inferior leads ST now depressed in Anterolateral leads Confirmed by Hernan Ho ([id number]) on 08/10/2024 11:10:15 PM Referred By: Confirmed By: Hernan Ho
--- NOTE | 2024-08-10 23:11 | Electrocardiogram Report ---
Test Reason : Blood Pressure : */* mmHG Vent. Rate : 57 BPM Atrial Rate : 57 BPM P-R Int : 170 ms QRS Dur : 86 ms QT Int : 434 ms P-R-T Axes : 52 34 66 degrees QTcB Int : 422 ms Sinus bradycardia Low voltage QRS Borderline ECG When compared with ECG of 08-Aug-2024 20:34, Sinus rhythm has replaced Atrial fibrillation Vent. rate has decreased by [address] no longer depressed in Inferior leads ST no longer depressed in Anterolateral leads Confirmed by Hernan Ho ([id number]) on 08/10/2024 11:10:37 PM Referred By: REFERRED SELF Confirmed By: Hernan Ho
== END 2024-08-09 15:49 | disposition home or self-care (01) ==
LOC: ED 20:25 → 4W 20:25 → SUATTDRO 23:37 → 4W 08-09 00:24